=== PATIENT | male | born 1965 | race Caucasian/White ===

== ENCOUNTER 2023-06-06 06:38 | Day surgery (SDC) | payer OTHER ==
[~2023-06-06] VITALS: Ht 185.4 cm; Wt 74.8 kg
[2023-06-06] MEDS ORDERED: fentaNYL citrate 0.05 MG/ML VIAL ONE (09:03)
[2023-06-06] MEDS ORDERED: LIDOCAINE 2% 100 MG/5 ML UJET TP ONE (09:04)
[2023-06-06] MEDS ORDERED: MIDAZOLAM 2 MG/2 ML VIAL ONE (10:15)
[2023-06-06] MEDS ORDERED: EPINEPHrine PFS 0.1 MG/ML SYR IVP ONE (11:03)
[2023-06-06] MEDS ORDERED: MIDAZOLAM 2 MG/2 ML VIAL IVP ONE (11:35)
[2023-06-06] MEDS ORDERED: fentaNYL citrate 0.05 MG/ML VIAL IVP ONE (11:35)
== END 2023-06-06 12:55 | disposition home or self-care (01) ==
LOC: MOR 06:38 → MMU 06:52 → MOR 12:55
PROVIDERS: ATTEND Internal Medicine Gastroenterology
DX: Z12.11 Encounter for screening for malignant neoplasm of colon (principal); D12.5 Benign neoplasm of sigmoid colon; F41.9 Anxiety disorder, unspecified; Z98.890 Other specified postprocedural states
CPT/HCPCS: 45381; 45385; 88305; J0171; J2250; J3010; 36470

== ENCOUNTER 2024-03-14 09:46 | Observation (INO) | payer OTHER ==
[~2024-03-14] VITALS: Ht 182.9 cm; Wt 70.3 kg
[2024-03-14 11:40] VITALS: RESP 18; O2SAT 98
[2024-03-14] MEDS: BOWEL EVACUANT DRINK 4,000 ML PDS PO SCH (14:08)
[2024-03-14 15:02] VITALS: O2SAT 98
[2024-03-14 16:00] VITALS: BP 114/67; PULSE 70; RESP 17; TEMP 98.6; O2SAT 100
[2024-03-14 20:00] VITALS: PULSE 70; RESP 18; O2SAT 100
[2024-03-15] VITALS: BP 146/77; PULSE 60; RESP 18; TEMP 98.4; O2SAT 99
[2024-03-15 08:00] VITALS: BP 119/69; PULSE 65; RESP 17; RESP 18; TEMP 98.6; O2SAT 100
[2024-03-15] MEDS ORDERED: fentaNYL citrate 0.05 MG/ML VIAL ONE (08:55)
[2024-03-15] MEDS ORDERED: MEDS-TO-BEDS MC SCH (09:00)
[2024-03-15] MEDS ORDERED: KETOROLAC 30 MG/ML VIAL ONE (09:32)
[2024-03-15] MEDS: KETOROLAC 30 MG/ML VIAL IM ONE (09:36)
[2024-03-15] MEDS: LIDOCAINE 2% 100 MG/5 ML UJET TP ONE (09:44)
[2024-03-15 10:15] VITALS: BP 114/69; PULSE 65; RESP 18; TEMP 98.6
== END 2024-03-15 10:44 | disposition home or self-care (01) ==
LOC: MMU 10:15
PROVIDERS: ADMIT Internal Medicine Gastroenterology; ATTEND Internal Medicine Gastroenterology
DX: K57.30 Diverticulosis of large intestine without perforation or abscess without bleeding (principal); Z86.010 Personal history of colon polyps
CPT/HCPCS: 45330; 94760; G0378; G0379; J1885; J3010